=== PATIENT | male | born 1990 | race Caucasian/White ===

== ENCOUNTER 2020-09-15 12:00 | Emergency (ER) | payer OTHER, SELFPAY ==
[2020-09-15 12:13] VITALS: BP 133/76; PULSE 76; RESP 19; TEMP 36.9; O2SAT 99; BMI 27.1
--- NOTE | 2020-09-15 12:25 | HMH.EDUTC ---
[facility] [place] Clinical Impression: Sinusitis Qualifiers: Sinusitis location: unspecified location Chronicity: unspecified Qualified Code(s): J32.9 - Chronic sinusitis, unspecified Disposition: Home, Self-Care Condition on Discharge: Good Instructions: Sinusitis, DI for Sinusitis, DI for COVID-19 (Suspected or Confirmed ), Coronavirus Disease 2019 Additional Instructions: *Monitor Temp, Over the counter Motrin or Tylenol as directed/as needed Tylenol every 4 hours and Motrin every 6 hours (as long as your family doctor has told you that you can take it) for fever or pain. and straight to ER if unable to lower temp less than 101.0 after medication given *Warm salt water gargles may help to soothe the throat *Throat Lozenges *Warm fluids like tea with honey may help to soothe the throat *Sleep elevated *Humidifier/Vaporizer Follow up IMMEDIATELY for new or worsening symptoms or no Noticeable improvement over the next 48-72 hours. 911 for difficulty breathing or swallowing You were tested for today for COVID19 your test result should be back in the next 24-48 hours, you may call to the [facility] to see if your test results are back in the next 48 hours [phone] [facility] hours are 9am-9pm You was given a handout with instructions for Self Quarantine and Self isolation for while you wait on test results and what to do if they are positive If you are positive the Health Dept will be contacting you also Prescriptions: methylPREDNISolone [Medrol 4mg tab] 4 mg PO DIRECTED #21 tab Transmission Status: Pending to [email or web address] # Azithromycin [Z-Jeovany 250mg Tab] 250 mg PO DIRECTED #6 tab Transmission Status: Pending to [email or web address] # Referrals: Javier Gong MD [Primary Care Provider] - As needed Time of Disposition: 12:31 Medical Decision Making - Derrell Inquiry Pt receiving controlled substance: No Derrell was queried for this patient: No Vital Signs: 09/15/20 12:13 Temperature 98.4 F Temperature Source Oral Pulse Rate [Right] 76 Respiratory Rate 19 Blood Pressure [Right Arm] 133/76 Blood Pressure Mean [Right Arm] 95 Blood Pressure Source [Right Arm] Automatic Cuff Blood Pressure Position [Right Arm] Sitting 02 Sat by Pulse Oximetry 99 Oxygen Delivery Method Room Air Orders (Tests/Meds): ORDERS Category Date Time Status Covid-19 Nasal PCR ([facility]) Routine Lab 09/15/20 12:10 Received Medical Decision Narrative: Patient states that he has taken a zpack and Medrol before without complications or reactions [facility] [place] - General Stated complaint: covid test Time Seen by Provider: 09/15/20 12:25 Mode of Arrival: Ambulatory Source of Information: Patient Limitations: No Limitations Description of Symptoms (Recalled from Triage Doc. by RN): pt states he has had a fever, body aches and congestion since monday. HEENT Symptoms (Recalled from RN notes): Yes (congestion) Resp Symptoms (Recalled from RN notes): No Skin Symptoms (Recalled from RN notes): No MS Symptoms (Recalled from RN notes): Yes (body aches) Functional Status (Recalled from RN notes): na - History of Present Illness Provider Complaint: Patient states that he has been having sinus pain and pressure on and off for over a week with yellowish green mucous States that since Monday he has been having pressure again and feeling of pressure in his ears, drainage, body aches, headache and chills States that he wasnt sure if he may have a sinus infection or not and wanted to get tested for COVID - Related Data Previous Rx's Medication Instructions Recorded omeprazole 20 mg tablet,delayed 20 mg PO DAILY #30 tab 03/25/19 release cephALEXin [Keflex 500mg Cap] 500 mg PO Q6H 7 Days #28 cap 07/11/19 Azithromycin [Z-Jeovany 250mg Tab] 250 mg PO DIRECTED #6 tab 09/15/20 methylPREDNISolone [Medrol 4mg 4 mg PO DIRECTED #21 tab 09/15/20 tab] Allergies Allergy/AdvReac Type Severity Reaction Status
[2020-09-15 12:36] VITALS: BP 129/74; PULSE 74; RESP 18; TEMP 36.6
--- NOTE | 2020-09-15 19:04 | PC.NURSE ---
RELAYED PTS POSITIVE COVID STATUS.
== END 2020-09-15 12:36 | disposition home or self-care (01) ==
PROVIDERS: Emergency Provider Nurse Practitioner; PCP Internal Medicine Adolescent Medicine
DX: U07.1 COVID-19 (principal); J32.9 Chronic sinusitis, unspecified
CPT/HCPCS: 99202; G0463; U0003

== ENCOUNTER 2023-05-17 21:31 | Emergency (ER) | payer OTHER, SELFPAY ==
--- NOTE | 2023-05-17 21:31 | ECG_ITS ---
APPROVED REPORT Exam: Resting ECG HR:66 bpm ECG Measurements Heart Rate 66 AXES CO 154 P 54 QRSd 104 QRS 58 QT 389 T 31 QTc 403 Conclusion SINUS RHYTHM NORMAL ECG UNCONFIRMED REPORT Electronically signed by : Javier Gong MD 05/18/2023 21:39:18
[2023-05-17 21:32] VITALS: BP 157/92; PULSE 80; RESP 20; TEMP 36.8; O2SAT 97; BMI 29.1
--- NOTE | 2023-05-17 22:01 | PC.NURSE ---
Pt hx hypogycemia, BSC 106
--- NOTE | 2023-05-17 22:18 | XR_ITS ---
PROCEDURE INFORMATION: Exam: XR Chest Exam date and time: 05/17/2023 10:43 PM Age: 33 years old Clinical indication: Pain; Dyspnea; Left-sided TECHNIQUE: Imaging protocol: Radiologic exam of the chest. Views: 1 view. COMPARISON: CR Chest 01/27/2019 10:19 PM FINDINGS: Lungs: Lungs are clear. Pleural spaces: No pleural effusion. No pneumothorax. Heart/Mediastinum: Normal cardiomediastinal silhouette. Bones/joints: No acute osseous abnormality. IMPRESSION: No acute findings.
--- NOTE | 2023-05-17 22:20 | HMH.EDGENADL ---
Discharge Plan Disposition Patient Disposition: Home, Self-Care Prescriptions Prescriptions: No Action omeprazole 20 mg tablet,delayed release (DR/EC) 20 mg PO DAILY Qty: 30 6RF cephalexin 500 MG capsule 500 mg PO Q6H 7 Days Qty: 28 0RF azithromycin 250 MG tablet 250 mg PO DIRECTED Qty: 6 0RF Rx Instructions: Take two (2) tablets on day #1, then one (1) tablet day #2 thru #5 methylprednisolone 4 MG tablet 4 mg PO DIRECTED Qty: 21 0RF Rx Instructions: Take as directed on package instructions Referrals Follow up/Referrals: Javier Gong MD [Primary Care Provider] - See instructions Activity Restrictions/Add. Instructions Additional Instructions/Restrictions: Please follow-up with your primary care provider. Please return to the emergency department if you develop any new or worsening symptoms or become concerned for your health. Clinical Impressions Clinical Impression: Atypical chest pain Discharge ED Provider: Ligia Talley General Adult HPI <Ligia Talley MD - Last Filed: 05/17/23 22:22> General Chief complaint: Chest Pain Stated complaint: chest pain Time Seen by Provider: 05/17/23 22:10 Mode of Arrival: Wheelchair Source of Information: Patient Limitations: No Limitations Description of Symptoms (Recalled from ER Triage Doc. by RN): Pt states he has been having intermittent chest pain since Monday. No cardiac hx, pain radiating down left arm today. Denies any N/V. History of Present Illness HPI narrative: Patient is a 33-year-old male present today with chest pain. This has been intermittent since Monday symptoms lasting no more than a few minutes. They significantly improved with exertion did not worsen with exertion. No shortness of breath associated with this no diaphoresis or nausea or vomiting. No fevers or chills or cough. What concerned him tonight is that he had some paresthesias in the left upper extremity and he was concerned he may have something going on with his heart. He also states he has significant anxiety and stress mainly due to work related problems. From historical standpoint he has a history of esophageal food impaction and chronic esophagitis but believes that that has been under control lately. Related Data Previous Rx's Medication Instructions Recorded omeprazole 20 mg tablet,delayed 20 mg PO DAILY GERD #30 tabs 03/25/19 release cephalexin 500 mg capsule 500 mg PO Q6H 7 days #28 caps 07/11/19 azithromycin 250 mg tablet 250 mg PO DIRECTED #6 tabs 09/15/20 methylprednisolone 4 mg tablet 4 mg PO DIRECTED #21 tabs 09/15/20 Allergies Allergy/AdvReac Type Severity Reaction Status Date / Time No Known Allergies Allergy Verified 09/15/20 12:01 [facility] <Ligia Talley MD - Last Filed: 05/17/23 22:22> [facility] Disclaimer: The information contained in this section may have been updated after the patient was seen, as this information can be updated by other users. Social History Smoking Status: Never smoker alcohol intake: never substance use type: denies use current occupational status: employed Travel in the last 8 weeks: None household members: spouse housing: house caffeine: No <Ligia Talley MD - Last Filed: 05/17/23 22:22> ROS Obtained: Yes All systems reviewed & no additional complaints except as documented Physical Exam <Ligia Talley MD - Last Filed: 05/17/23 22:22> General General appearance: alert Respiratory Respiratory exam: Present normal lung sounds bilaterally; Absent respiratory distress or wheezes Cardiovascular Cardiovascular exam: Present regular rate and other (2+ radial and ulnar pulses left upper extremity good peripheral perfusion normal median ulnar radial and axillary motor and sensory function left upper extremity); Absent tachycardia Abdominal Exam Abdominal exam: Present soft; Absent distention, tenderness or guarding Neurological Exam Neurological exam: Present alert and orie
[2023-05-17 22:24] LABS: Basophils % 0.5 % (0.1-2.0); Eosinophils # 0.4 K/mm3 (0.0-0.4); Eosinophils % 5.7 % (0.1-12.0); Hematocrit 42.7 % (42.0-52.0); Hemoglobin 14.9 g/dL (14.1-18.0); Lymphocytes # 2.9 K/mm3 (0.7-4.5); Lymphocytes % 42.4 % (10-50); Mean Corpuscular Hemoglobin 30.7 pg (27.0-31.2); Mean Platelet Volume 7.5 fl (7.4-10.4); Monocytes # 0.5 K/mm3 (0.1-1.0); Monocytes % 6.6 % (1.7-9.3); Neutrophils # 3.1 K/mm3 (1.8-7.8); Neutrophils % 44.8 % (37.0-80.0); Platelet Count 291 K/mm3 (142-424); Red Blood Count 4.85 M/mm3 (4.60-6.20); Red Cell Distribution Width 13.4 % (11.5-17.5); White Blood Count 6.9 K/mm3 (4.8-10.8)
[2023-05-17 22:30] LABS: Chloride 104 mmol/L (98-107); Potassium 3.7 mmoL/L (3.5-5.1); Sodium 140 mmol/L (136-145)
[2023-05-17 22:33] LABS: Alanine Aminotransferase 68 U/L (12-78); Albumin Level 4.8 g/dl (3.5-5.0); Albumin/Globulin Ratio 1.6 (1.1-1.8); Alkaline Phosphatase 78 U/L (38-126); Anion Gap 11.7 mEq/L (5-15); Aspartate Amino Transferase 53 U/L (17-59); Bilirubin,Total 0.5 mg/dl (0.2-1.3); Blood Urea Nitrogen 14 mg/dl (9-20); Calcium 9.3 mg/dl (8.4-10.2); Carbon Dioxide 28 mmol/L (22.0-30.0); Creatinine Clearance Estimated 131 mL/min (50-200); Estimated Glomerular Filt Rate 77 ml/min (>60); GFR (African American) 93 ML/MIN (>60); Glucose 85 mg/dl (74-100); Lipase 104 U/L (23-300); Total Protein,Serum 7.8 g/dl (6.3-8.2)
[2023-05-17 22:49] LABS: Troponin I < 0.01 ng/ml (0.00-0.034)
[2023-05-18 00:34] LABS: Troponin I < 0.01 ng/ml (0.00-0.034)
[2023-05-18 00:49] VITALS: BP 140/79; PULSE 68; RESP 18; TEMP 36.8
== END 2023-05-18 00:50 | disposition home or self-care (01) ==
PROVIDERS: Emergency Provider Student in an Organized Health Care Education/Training Program; PCP Internal Medicine Adolescent Medicine
DX: R07.89 Other chest pain (principal)
CPT/HCPCS: 71045; 80053; 83690; 84484; 85025; 93005; 99284